=== PATIENT | female | born 1990 | race Hispanic/Latino ===

== ENCOUNTER 2018-05-19 21:09 | Emergency (ER) | payer OTHER ==
[2018-05-19] MEDS ORDERED: ACETAMINOPHEN 325 MG TAB ONE (22:32)
== END 2018-05-19 22:51 | disposition home or self-care (01) ==
LOC: EDH 21:09
DX: S93.492A Sprain of other ligament of left ankle, initial encounter (principal); W18.39XA Other fall on same level, initial encounter; Y93.02 Activity, running; Y92.89 Other specified places as the place of occurrence of the external cause; Y99.8 Other external cause status
CPT/HCPCS: 73610